=== PATIENT | female | born 1960 | race Caucasian/White ===

== ENCOUNTER → 2017-02-16 | Outpatient (CLI) | payer OTHER ==
[~2017-02-16] MED LIST: CETI10TA22 PO; CONTRAST GIVEN MC PRN; GADOBUTROL 7.5 MMOL/7.5 ML VIAL INT ART ONE; IOHEXOL 300 MG/ML 10ML VIAL. INT ART ONE; LEVO137T2 PO; LIDOCAINE 1% Multi-Dose 20 ML VIAL. ID ONE; MELA3TAB PO; METH4TAB7 PO; NAPR500T3 PO; PANT40TA3 PO; SERT100T PO
--- NOTE | 2017-02-16 12:02 | KCIC ---
Fluoroscopic guided left hip injection for MRI dated 02/16/2017: No comparison available. Clinical Indication: Gadolinium injection for MRI. Technical factors: The potential benefits and risks of the procedure were discussed with the patient and informed consent was obtained. The anterior left hip was prepped and draped in a sterile fashion. After local anesthesia, a 22-gauge spinal needle was inserted into the left hip joint using an anterior approach. Following negative aspiration, 15 cc's of a solution of 5cc Omnipaque contrast, 5 cc 1% lidocaine, 10 cc normal saline, and 0.1 cc gadolinium was injected without difficulty. The needle was then removed and a dry sterile dressing was applied. The patient was then sent to the MR suite for imaging. The patient tolerated the procedure well. Findings: Single fluoroscopic image shows needle tip at the lateral femoral head/neck junction. Contrast material extends into the joint space. 1:25 fluoroscopic time used. One image. Impression: Fluoroscopic guided left hip injection for MRI. Electronically signed by: Etienne Miller MD (02/16/2017 11:59 AM)
--- NOTE | 2017-02-16 12:53 | KCIC ---
MRI arthrogram left hip dated 02/16/2017 11:45 AM Indication: Low back pain and left hip pain increasing over the last 5 years. Pain along left buttocks and anterior thigh and left groin. No prior surgery. No known injury. Comparison: No comparison is available. Technique: Routine multiplanar multisequence imaging following the intra-articular injection of dilute gadolinium. Injection portion of the study will be reported separately. Findings: Adequate distention of the joint space with contrast material. Moderate hypertrophic change at the left hip joint with prominent marginal osteophytes. Thinning and surface irregularity of the articular cartilage throughout with full-thickness cartilage loss over the anterior weightbearing surfaces of femoral head and acetabulum. There is associated subchondral edema and subchondral cystic change. Blunted morphology of the anterior superior labrum with small linear defect extending along the labral cartilaginous interface. Posterior labrum is grossly intact. There is a small loose body at the inferior joint space measures about 3 to 4 mm in size. Gluteus minimus and gluteus medius tendons are intact. Proximal hamstring tendon complex intact. Iliopsoas is intact. No additional soft tissue abnormality. No intra or muscular edema. There is generalized mild fatty atrophy. Bone marrow signal is otherwise homogeneous. No marrow edema. Limited imaged portions of the pelvis unremarkable. No localized adenopathy or ascites. IMPRESSION: 1. 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 There is full-thickness cartilage loss at the anterior weightbearing surfaces of the femoral head and acetabulum. 2. 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 3. Otherwise no significant bony or soft tissue abnormality. Electronically signed by: Etienne Miller MD (02/16/2017 12:50 PM)
== END | disposition home or self-care (01) ==
LOC: KCIC 10:50
PROVIDERS: ATTEND Family Medicine
DX: M25.552 Pain in left hip (principal); M54.5 Low back pain
CPT/HCPCS: 73525; 73722; Q9967; A9585